=== PATIENT | female | born 1995 | race Caucasian/White ===

== ENCOUNTER 2016-07-24 13:00 | Emergency (ER) | payer OTHER ==
--- NOTE | ~2016-07-24 | EKG ---
PATIENT: SHARON NOLAND UNIT #: [id number] Ventricular Rate: 84 BPM Atrial Rate: 84 BPM P-R Interval: 110 ms QRS Duration: 76 ms Q-T Interval: 354 ms QTC Calculation(Bezet): 418 ms P [place]: -11 degrees Calculated R [place]: 23 degrees Calculated T [place]: 43 degrees Diagnosis Line: Sinus rhythm with short SC Diagnosis Line: Otherwise normal ECG Diagnosis Line: Diagnosis Line: Confirmed by NATALIA RATLIFF MD ([id number]) on 07/25/2016 Diagnosis Line: 6:13:09 AM INTERPRETING MD: GAUDENCIO TRENT
[2016-07-24 12:37] LABS: BASOPHIL% 0.2 % (0-2.5); DIFF IND YES; EOSINOPHIL% 0.2 % (0.0-7.0); HEMATOCRIT 44.2 % (35.0-45.0); HEMOGLOBIN 14.5 gm/dL (12.0-16.0); LYMPHOCYTE# 2.3 X10e3 (1.0-3.5); LYMPHOCYTE% 14.9 % (17.0-45.0); MEAN CELL VOLUME 83.9 FL (83-96); MEAN CORPUSCULAR HEMOGLOBIN 27.6 PG (28-34); MEAN CORPUSCULAR HGB CONC 32.8 g/dL (30-36); MEAN PLATELET VOLUME 9.5 FL (6.5-11.5); MONOCYTE# 0.7 X10e3 (0-1.0); MONOCYTE% 4.3 % (3.0-12.0); NEUTROPHIL# 12.4 X10e3 (1.5-7.1); NEUTROPHIL% 80.4 % (40-75); PLATELET COUNT 209 X10e3 (140-420); RED BLOOD COUNT 5.27 X10e (3.90-5.30); RED CELL DISTRIBUTION WIDTH 13.5 % (11.0-15.5); WHITE BLOOD COUNT 15.4 X10e3 (4.0-10.5)
[2016-07-24 12:43] LABS: POC - CKMB 1.2 ng/mL (0.0-7.9); POC - TROPONIN <0.05 ng/mL (<=0.05)
[2016-07-24 13:03] LABS: ANISOCYTOSIS SL; PLATELET ESTIMATE NORMAL (NORMAL)
[2016-07-24 13:04] LABS: ACETAMINOPHEN <10 ug/mL; ALBUMIN SERUM 3.8 g/dL (3.5-5.0); ALCOHOL BLOOD <5 mg/dL (0); ALKALINE PHOSPHATASE 71 U/L (32-92); ALT (SGPT) 19 U/L (10-40); AST (SGOT) 24 U/L (10-42); BILIRUBIN, DIRECT 0.1 mg/dL (0.0-0.2); BILIRUBIN,INDIRECT 0.5 mg/dL (0.0-0.9); BILIRUBIN,TOTAL 0.6 mg/dL (0.2-2.0); BLOOD UREA NITROGEN 8 mg/dL (9-23); BUN/CREATININE RATIO 13.33; CARBON DIOXIDE 22 mmol/L (22-31); CHLORIDE 105 mmol/L (100-111); CREATININE SERUM 0.6 mg/dL (0.6-1.4); GLOM FILT RATE Estimated 128.5 mL/min (>60); GLUCOSE FASTING 87 mg/dL (70-110); POTASSIUM 3.5 mmol/L (3.5-5.1); PROTEIN TOTAL SERUM 6.6 g/dL (6.0-8.3); SALICYLATE <4.0 mg/dL; SODIUM 137 mmol/L (135-145)
[2016-07-24 15:24] LABS: URINE SOURCE CLEAN CATCH
[2016-07-24 15:36] LABS: URINE APPEARANCE CLEAR; URINE BILIRUBIN NEG (NEG); URINE BLOOD NEG (NEG); URINE COLOR YELLOW; URINE GLUCOSE NEG (NEG); URINE KETONE 3+ (NEG); URINE LEUKOCYTE ESTERASE NEG (NEG); URINE NITRATE NEG (NEG); URINE PROTEIN NEG (NEG); URINE SPECIFIC GRAVITY 1.019 (1.003-1.035); URINE UROBILINOGEN 0.2 MG/DL (NEG)
[2016-07-24 15:46] LABS: AMPHETAMINE POS (NEG); BARBITURATES NEG (NEG); BENZODIAZEPINES NEG (NEG); COCAINE NEG (NEG); MARIJUANA NEG (NEG); OPIATES POS (NEG); TRICYCLIC ANTIDEPRESSANTS NEG (NEG); U METHADONE NEG (NEG)
[2016-07-24 16:08] LABS: CULTURE INDICATED? NO
[2016-07-24 17:10] LABS: SALICYLATE <4.0 mg/dL
[2016-07-24 17:15] LABS: ACETAMINOPHEN <10 ug/mL
== END 2016-07-24 23:26 ==
LOC: CFTX 13:00
PROVIDERS: Emergency Medicine
DX: T40.1X2A Poisoning by heroin, intentional self-harm, initial encounter (principal); F11.23 Opioid dependence with withdrawal; F17.210 Nicotine dependence, cigarettes, uncomplicated
CPT/HCPCS: 80048; 80076; 80307; 81003; 82553; 84484; 85025; 93005; 99283; 99285; G0480; J1885

== ENCOUNTER 2016-07-24 23:51 | Inpatient (IN) | payer OTHER ==
--- NOTE | ~2016-07-24 | HP ---
Unit #: [id number] #: [id number] Patient: ABDULAZIZ NOLAND [id number] [place] [address] [id number] MR#: [id number] NAME: ABDULAZIZ NOLAND ROOM: P208 Age: 21 Sex: F Admission Date: 07/24/2016 : 1995 Attending Physician: Will Sanderson M.D. Admitting Physician: Will Sanderson M.D. Primary Care Physician: Primary Care Physician No HISTORY AND PHYSICAL HISTORY OF PRESENT ILLNESS Abdulaziz is a 21 year old admitted to [address] [place] [address] because of her drug use. She snorts heroin. Patient reports she is 4 months and beta HCG is positive at time of admission. PAST MEDICAL HISTORY 1. Long history of opioid abuse to include heroin. 2. Patient reports she is 4 months . PAST SURGICAL HISTORY Nothing reported. ALLERGIES No known drug allergies. SOCIAL HISTORY Smokes 1/2 pack per day. Drinks alcohol rarely. Has a long history of polysubstance abuse to include heroin, amphetamines, benzodiazepines and methadone. FAMILY HISTORY Medically noncontributory. REVIEW OF SYSTEMS CONSTITUTIONAL: No fever or chills. HEENT: Denies any sore throat, ear pain or runny nose. CARDIOVASCULAR: Denies chest pain, irregular heart rhythm or palpitations. CHEST: Denies shortness of breath or cough. No hemoptysis. GASTROINTESTINAL: Denies nausea, vomiting, diarrhea or chronic constipation. ENDOCRINE: Denies history of increased thirst or urination. No recent significant weight loss or gain. GENITOURINARY: Denies dysuria, frequency, or hematuria. SKIN: Denies any rashes. HEMATOLOGIC: Denies history of increased bleeding or bruising. MUSCULOSKELETAL: Denies any hot, swollen joints. No generalized muscle pain. NEUROLOGIC: Denies problems with vision or speech. No frequent, severe headaches. No numbness, tingling or weakness in any extremities. Denies loss of bladder or bowel control. CURRENT MEDICATIONS 1. Multivitamin 1 daily. Unit #: [id number] #: [id number] Patient: ABDULAZIZ NOLAND 2. Phenergan p.r.n. 3. Bentyl p.r.n. 4. Neurontin 600 mg q. 6 hours p.r.n. 5. Milk of Magnesia p.r.n. 6. Maalox p.r.n. 7. Tylenol p.r.n. 8. Thiamine daily. PHYSICAL EXAMINATION GENERAL: Alert, well-nourished, in no apparent distress. VITAL SIGNS: Blood pressure 136/86, heart rate 100, respirations 16, temperature 98.6. WEIGHT: 120. HEIGHT: 5 feet 0 inches. SKIN: Warm and dry without rash or lesion. HEENT: Normocephalic. TMs not viewed. Oral and nasal passages clear. Conjunctivae clear. PERRLA. EOMs intact. NECK: Supple without lymphadenopathy or thyromegaly. HEART: Regular rate and rhythm without murmur. LUNGS: Clear. ABDOMEN: Soft, nontender. : Not done. EXTREMITIES: No evidence of cyanosis, clubbing or edema. Moves all without focal deficit. NEUROLOGICAL: Grossly within normal limits. Cranial Nerves: II: Visual roger are intact. III, IV AND : Extraocular movements are intact. Pupils are equal, round and reactive to light. V: Facial sensation is grossly normal. VII: Facial movements and expression are normal. VIII: Auditory acuity grossly intact. IX, X: Uvula is midline. Phonation is normal. XI: Patient shrugs shoulders and turns head normally. XII: Tongue protrudes in the midline. Sensory and Motor Function: Sensory and motor sensation is grossly normal. Motor: moves all extremities well. Coordination: Gait is normal. Deep Tendon Reflexes: Intact. IMPRESSION Psychiatric admission. RECOMMENDATIONS PSYCHIATRIC: Per psychiatrist. MEDICAL: See no contraindications to participate in facility's activities. MEDICAL PROGNOSIS Good. MEDICAL CONDITION Stable. Dictated by... Geri Whyte P.A.-C. for Harjinder Vizcaino/erick Unit #: [id number] #: [id number] Patient: ABDULAZIZ NOLAND TD: 07/25/2016 23:02 JOB #: [id number] HISTORY AND PHYSICAL Page 1 of 1 X Geri Whyte HISTORY AND PHYSICAL
--- NOTE | ~2016-07-24 | DS ---
Unit #: [id number] #: [id number] Patient: SHARON NOLAND [id number] [place] [address] [id number] I MR#: [id number] NAME: SHARON NOLAND ROOM: [facility] Age: 21 Sex: F Admission Date: 07/24/2016 : 1995 Discharge Date: 07/26/2016 Attending Physician: Will Sanderson M.D. DISCHARGE SUMMARY REASON FOR ADMISSION The patient is a 21-year-old white female, admitted for opioid detox. She is 4 months . HOSPITAL COURSE The patient was admitted to the -[facility] unit and placed on routine detoxification protocol for opioids. Care was taken to avoid any potentially teratogenic medications. The patient's stay in the hospital was brief. She exhibited no signs or symptoms of withdrawal on 07/26/2016 and requested discharge stating that she planned to return for Subutex treatment. As per her request, discharge was ordered. FINAL DIAGNOSES Opioid use disorder, intrauterine 4 months duration. DISPOSITION ON DISCHARGE The patient is discharged on the following medications; vitamins 1 daily. DISCHARGE INSTRUCTIONS No dietary or physical restrictions were placed on the patient at the time of discharge. FOLLOWUP Followup will take place through the auspices of the patient's chosen Subutex provide. She declined an offer of chemical dependency intensive outpatient programming. PROGNOSIS Her prognosis is fair. Dictated by... Will Sanderson M.D. CB/ruth TD: 07/26/2016 23:20 JOB #: [id number] Unit #: [id number] #: [id number] Patient: SHARON NOLAND DISCHARGE SUMMARY Page 1 of 1 X Will Sanderson MD X DISCHARGE SUMMARY
--- NOTE | ~2016-07-24 | PA ---
Unit #: [id number] #: [id number] Patient: SHARON NOLAND [id number] [place] [address] [id number] I MR#: [id number] NAME: SHARON NOLAND ROOM: [facility] [place] Age: 21 Sex: F Admission Date: 07/24/2016 : 1995 Date of Assessment: 07/25/2016 Attending Physician: Will Sanderson M.D. Admitting Physician: Will Sanderson M.D. Primary Care Physician: Primary Care Physician No PSYCHIATRIC ASSESSMENT IDENTIFYING INFORMATION The patient is a 21-year-old single white female admitted to the [address] [place] [address] for opioid detox. She is 4 months' . CHIEF COMPLAINT Coming off heroin. INFORMANT(S) Patient, reliability is good. HISTORY OF PRESENT ILLNESS The patient is a 21-year-old white female who is 4 months' . The father of her child recently from a drug overdose. The patient reports that she has been using heroin by means of intranasal insufflation for the past 6 months and is "tired of living like this." The patient reports no previous chemical dependence or other psychiatric treatment. She has apparently been prescribed Suboxone in the past, but her last prescription dates to May of this year. The patient currently complains of significant symptoms of opioid withdrawal. She denies current suicidal or homicidal ideation. She lives with her mother and father whom she states are supportive. She denies recent changes in sleep or appetite. PAST PSYCHIATRIC HISTORY None. PAST MEDICAL HISTORY Noncontributory apart from the patient's current . MEDICATIONS vitamins. ALLERGIES None reported. FAMILY HISTORY Noncontributory. SOCIAL HISTORY The patient lives with her parents. She graduated from high school and briefly attended "[employer] school" but dropped out. Her substance use history is as noted previously. She also reports occasional use of methamphetamine. She denies any history of intravenous drug use. Unit #: [id number] #: [id number] Patient: SHARON NOLAND MENTAL STATUS EXAMINATION Examination at this time reveals the patient to be a well-developed well-nourished white female appearing her stated age. She is in significant physical distress during interview. She is awake, alert, and oriented in all spheres. Her mood is dysphoric, her affect constricted. Speech is generally well-coherent. There are no gross deficits in memory or cognition noted. Intelligence is judged to be in the average range based on fund of knowledge. The patient is cooperative throughout the interview. She is currently reporting no suicidal or homicidal ideation or psychotic features. Judgment and insight appear to be intact. ASSETS AND LIABILITIES The patient's assets: Motivation for change, supportive family. Liabilities: None noted. DIAGNOSTIC IMPRESSION 1. Opioid use disorder. 2. Intrauterine 4 months' duration. TREATMENT PLAN The patient remains hospitalized for safety and stabilization. Routine detoxification protocol has been ordered. Unfortunately, we are unable to place the patient on a methadone-based detoxification protocol as would be preferable in a female. We will limit any potential medications that may complicate the patient's . ESTIMATED LENGTH OF STAY 5 to 7 days. The followup will take place through the auspices of community mental health resources. Dictated by... Will Sanderson M.D. JOHNSON/silas TD: 07/25/2016 14:51 JOB #: [id number] PSYCHIATRIC ASSESSMENT Page 1 of 1 X Will Sanderson MD X PSYCHIATRIC ASSESSMENT
== END 2016-07-26 12:00 | disposition home or self-care (01) | DRG 897 ==
LOC: P2S 23:51
PROC: HZ2ZZZZ Detoxification Services for Substance Abuse Treatment (ICD-10-PCS; principal; 2016-07-24)
DX: F11.20 Opioid dependence, uncomplicated (principal); F17.210 Nicotine dependence, cigarettes, uncomplicated; Z33.1 Pregnant state, incidental
CPT/HCPCS: 84703